=== PATIENT | male | born 1955 | race Caucasian/White ===

== ENCOUNTER → 2018-05-08 | Outpatient (CLI) | payer OTHER | LOC: M.MRI 04-29 12:07 | DX: M19.012 Primary osteoarthritis, left shoulder (principal); M19.011 Primary osteoarthritis, right shoulder; M75.102 Unspecified rotator cuff tear or rupture of left shoulder, not specified as traumatic; M75.101 Unspecified rotator cuff tear or rupture of right shoulder, not specified as traumatic; M67.412 Ganglion, left shoulder; M67.411 Ganglion, right shoulder; G89.29 Other chronic pain ==

== ENCOUNTER → 2019-08-08 | Outpatient (CLI) | payer OTHER | LOC: M.MRI 11:10 | DX: M75.102 Unspecified rotator cuff tear or rupture of left shoulder, not specified as traumatic (principal); M19.012 Primary osteoarthritis, left shoulder; R60.0 Localized edema ==

== ENCOUNTER → 2019-11-20 | Outpatient (CLI) | payer BC | LOC: M.ULTRA 15:30 | DX: I82.402 Acute embolism and thrombosis of unspecified deep veins of left lower extremity (principal) ==

== ENCOUNTER 2020-12-17 17:48 | Emergency (ER) | payer BC ==
[~2020-12-17] VITALS: Ht 177.8 cm; Wt 122.5 kg
[2020-12-17] MEDS ORDERED: SERTRALINE HCL50 MG PO (18:02)
[2020-12-17] MEDS ORDERED: MOBIC7.5 MG PO (18:02)
[2020-12-17] MEDS ORDERED: OMEPRAZOLE 20 M20 M1 PO (18:02)
[2020-12-17] MEDS ORDERED: DESYREL150 MG PO (18:02)
[2020-12-17] MEDS ORDERED: LISINOPRIL10 MG PO (18:02)
[2020-12-17] MEDS ORDERED: LYRICA 75 MG CA75 MG PO (18:02)
[2020-12-17] MEDS ORDERED: SIMVASTATIN80 MG PO (18:02)
[2020-12-17] MEDS ORDERED: XANAX 0.25 MG0.25 MG PO (18:03)
[2020-12-17] MEDS ORDERED: CHILDREN'S ASPI81 MG PO (18:03)
[2020-12-17] MEDS ORDERED: FISH OIL 1,0001 EAC9 PO (18:03)
[2020-12-17] MEDS ORDERED: PHENERGAN 25 MG25 M1 PO (18:03)
[2020-12-17] MEDS ORDERED: LEVOTHYROXINE125 MC1 PO (18:04)
[2020-12-17 18:16] LABS: URINE BILIRUBIN NEGATIVE (Negative); URINE BLOOD 3+ (Negative); URINE CLARITY CLEAR; URINE COLOR YELLOW; URINE GLUCOSE-RANDOM NEGATIVE (Negative); URINE KETONES 1+ (Negative); URINE LEUKOCYTES-REFLEX NEGATIVE (Negative); URINE NITRITE-REFLEX NEGATIVE (Negative); URINE PROTEIN TRACE (Negative); URINE UROBILINOGEN 0.2 E.U./dl (0.2-1.0)
[2020-12-17 18:16] LABS: HEMATOCRIT 41.9 % (42.0-52.0); MCH 29.7 pg (26.0-34.0); MCHC 33.5 g/dL (28.0-37.0); MCV 88.8 fL (80.0-100.0); MPV 7.2 fl. (7.2-11.1); NUCLEATED RBCS 0 /100WBC; PLATELET COUNT* 323 thou/uL (150-400); RBC 4.72 mil/uL (4.50-6.00); RDW-CV 14.6 % (10.5-14.5); WBC 10.5 thou/uL (4.0-11.0)
[2020-12-17 18:25] LABS: CALCIUM 9.3 mg/dL (8.5-10.1); CREATININE 1.2 mg/dL (0.6-1.3)
[2020-12-17 18:30] LABS: TOTAL BILIRUBIN 0.4 mg/dL (<0.1-1.0); TOTAL PROTEIN 7.4 g/dL (6.4-8.2)
[2020-12-17 18:36] LABS: HYALINE CASTS 0-3 Few /LPF (None Seen); SQUAMOUS 0-3 Few /LPF (0-3)
[2020-12-17 18:37] LABS: BACTERIA-REFLEX None Seen /HPF (None Seen); CRYSTALS None Seen /LPF (None Seen); URINE RBC >20 Many /HPF (0-2); URINE WBC-REFLEX 0-5 Rare /HPF (0-5)
[2020-12-17 18:38] LABS: MUCUS 0-3 Light strn/LPF (None Seen)
[2020-12-17 18:58] LABS: ABSOLUTE LYMPHOCYTES 0.7 thou/uL (0.8-5.3); ABSOLUTE MONOCYTES 0.1 thou/uL (0.0-1.2); ABSOLUTE NEUTROPHILS 9.7 thou/uL (1.6-8.1)
[2020-12-17 18:59] LABS: PLATELET ESTIMATE ADEQUATE
[2020-12-17] MEDS ORDERED: PERCOCET 7.5-31 EAC1 PO (19:57)
[2020-12-17] MEDS ORDERED: FLOMAX0.4 MG PO (19:57)
[2020-12-17 20:19] VITALS: BP 115/70
== END 2020-12-17 20:19 | disposition home or self-care (01) ==
LOC: M.ERS 17:48
PROVIDERS: Physician Assistant
DX: N20.0 Calculus of kidney (principal); Z20.822 Contact with and (suspected) exposure to COVID-19; I10 Essential (primary) hypertension; E03.9 Hypothyroidism, unspecified; K21.9 Gastro-esophageal reflux disease without esophagitis; Z90.49 Acquired absence of other specified parts of digestive tract; Z90.89 Acquired absence of other organs; Z88.8 Allergy status to other drugs, medicaments and biological substances